=== PATIENT | male | born 1980 | race Caucasian/White ===

== ENCOUNTER 2018-07-28 00:48 | Emergency (ER) | payer BC ==
[~2018-07-28] VITALS: Ht 180.3 cm; Wt 95.3 kg
[2018-07-28 00:52] VITALS: BP 128/74
[2018-07-28] MEDS ORDERED: FLUORESCEIN SODIUM OPHTH 1 EA STRIP OP ONE (01:00)
[2018-07-28] MEDS ORDERED: TETRAcaine 5 ML BOTTLE EACHEYE ONE (01:00)
[2018-07-28] MEDS ORDERED: TETRACAINE HCL/PF 0.5% UD 2 ML BOTTLE ONE (01:01)
[2018-07-28] MEDS ORDERED: FLUORESCEIN SODIUM OPHTH 1 EA STRIP ONE (01:01)
== END 2018-07-28 01:18 | disposition home or self-care (01) ==
LOC: ER 00:57
DX: S05.02XA Injury of conjunctiva and corneal abrasion without foreign body, left eye, initial encounter (principal); Z98.890 Other specified postprocedural states; W22.8XXA Striking against or struck by other objects, initial encounter; Y93.89 Activity, other specified; Y92.89 Other specified places as the place of occurrence of the external cause; Y99.8 Other external cause status